=== PATIENT | male | born 1975 | race Caucasian/White ===

== ENCOUNTER → 2024-02-04 | Emergency (ER) | payer OTHER ==
[~2024-02-04] VITALS: Ht 188 cm; Wt 108.9 kg
== END | disposition left against medical advice (07) ==
LOC: ER 00:43
DX: Z53.21 Procedure and treatment not carried out due to patient leaving prior to being seen by health care provider (principal)

== ENCOUNTER → 2024-02-05 | Emergency (ER) | payer OTHER ==
[~2024-02-05] VITALS: Ht 188 cm; Wt 108.9 kg
[~2024-02-05] MED LIST: TETANUS & DIPHTHERIA TOX,ADULT 0.5 ML VIAL IM ONE
== END | disposition left against medical advice (07) ==
LOC: ER 14:15
DX: M79.672 Pain in left foot (principal); M79.671 Pain in right foot; I73.89 Other specified peripheral vascular diseases; E11.9 Type 2 diabetes mellitus without complications; I10 Essential (primary) hypertension